=== PATIENT | male | born 2000 | race African-American/Black ===

== ENCOUNTER 2021-06-26 13:36 | Emergency (ER) | payer OTHER ==
[~2021-06-26] VITALS: Ht 180 cm; Wt 100.0 kg
[2021-06-26] MEDS ORDERED: LIDOCAINE 2% VISCOUS 15 ML UDC PO ONE (14:15)
[2021-06-26] MEDS ORDERED: ANTACID SUSP 30 ML UDC (MYLANTA) PO ONE (14:15)
[2021-06-26] MEDS ORDERED: diphenhydrAMINE 25 MG TAB (BENADRYL) PO ONE (14:15)
[2021-06-26] MEDS ORDERED: FAMOTIDINE 20 MG (PEPCID) TABLET PO ONE (14:15)
[2021-06-26] MEDS ORDERED: EPIN0.3P3 IJ (14:20)
--- NOTE | 2021-06-26 14:20 | ED General ---
General Chief Complaint: Allergic Reaction Stated Complaint: ALLERGIC REACTION Nursing Triage Note: pt to rm [address] by cr co ems with cc of having an allergic rxn after apparently eating fish when he thought he was eating chicken. pt used epi pen about 1315. sat of 99% at triage on room air with mild mid chest discomfort. Source of Information: Patient Exam Limitations: No Limitations History of Present Illness Date Seen by Provider: June 26, 2021 Time Seen by Provider: 14:17 Initial Comments To ER by EMS with reports of allergic reaction. He has been working and went to a [employer] [place] to get lunch and thought he was getting chicken but it must of been fish. He has a known allergy to fish and keeps an EpiPen with him. Shortly after ingesting this he noticed some itching in his mouth and throat tightness in his lower chest and then some swelling in his throat. He gave himself the EpiPen prior to calling EMS. He feels a little better now though he has some persistent epigastric tightness. No cough no wheezing no abdominal cramping or diarrhea no hives no itching of the skin. He does have rhinorrhea but he attributes that to seasonal allergies as this was present even before ingestion of the fish. Timing/Duration: 1-2 Days Severity: Moderate Associated Systoms: Denies Symptoms Allergies and Home Medications Allergies Coded Allergies: fish derived (Verified Allergy, Unknown, 06/26/21) Patient Home Medication List Home Medication List Reviewed: Yes Epinephrine (Epipen 2-Marcos) 0.3 Mg/0.3 Ml Auto.injct, 0.3 MG IJ PRN PRN for anaphylaxis Prescribed by: JING JOSHUA on 06/26/21 1420 Review of Systems Review of Systems Constitutional: see HPI EENTM: see HPI Respiratory: no symptoms reported Cardiovascular: no symptoms reported Genitourinary: no symptoms reported Musculoskeletal: no symptoms reported Skin: no symptoms reported Psychiatric/Neurological: No Symptoms Reported Hematologic/Lymphatic: No Symptoms Reported Immunological/Allergic: no symptoms reported Past Tyjeuml-Ddrepz-Eiffnn Hx Patient Social History Tobacco Use?: No Substance use?: No Alcohol Use?: Yes Alcohol type: Hard Liquor Immunizations Up To Date Third COVID19 Vaccination Date: 01/2021 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 oz. kg; 30.00 BMI Method: General Appearance: No Apparent Distress, WD/WN Eyes: Bilateral Eye Normal Inspection, Bilateral Eye PERRL HEENT: PERRL/EOMI, TMs Normal, Other (Mild rhinorrhea no oropharyngeal swelling no wheezing no stridor) Neck: Full Range of Motion, Normal Inspection Respiratory: No Accessory Muscle Use, No Respiratory Distress Cardiovascular: Regular Rate, Rhythm, Normal Peripheral Pulses Gastrointestinal: Normal Bowel Sounds, Non Tender, Soft Extremity: Normal Capillary Refill, Normal Inspection Neurologic/Psychiatric: Alert, Oriented x3 Skin: Normal Color, Warm/Dry Progress/Results/Core Measures Suspected Sepsis SIRS Temperature: Pulse: 67 Respiratory Rate: Blood Pressure 140 /79 Mean: 99 Results/Orders My Orders Orders - JING JOSHUA APRN Diphenhydramine Tablet (Benadryl Tablet) (06/26/21 14:15) Famotidine Tablet (Pepcid Tablet) (06/26/21 14:15) Antacid Suspension (Mylanta Suspension (06/26/21 14:15) Lidocaine 2% Viscous 15 Ml (Xylocaine Vi (06/26/21 14:15) Medications Given in ED Current Medications Medications Dose Ordered Sig/Ana Route Start Time Stop Time Status Last Admin Dose Admin Al Hydrox/Mg Hydrox/Simethicone 30 ml ONCE ONCE PO 06/26/21 14:15 06/26/21 14:17 DC 06/26/21 14:20 30 ML Diphenhydramine HCl 25 mg ONCE ONCE PO 06/26/21 14:15 06/26/21 14:17 DC 06/26/21 14:20 25 MG Famotidine 20 mg ONCE ONCE PO 06/26/21 14:15 06/26/21 14:17 DC 06/26/21 14:21 20 MG Lidocaine HCl 15 ml ONCE ONCE PO 06/26/21 14:15 06/26/21 14:17 DC 06/26/21 14:20 15 ML Vital Signs/I&O 06/26/21 06/26/21 13:40 13:49 Temp 36.6 Pulse 67 B/P (MAP) 140/79 (99) Pulse Ox 99 O2 Delivery Room Air Room Air Capillary Refill : Less Than 3 Seconds Blood Pressure Mean: 99 Departure Communication (Admissions) 1512-feeling much better after GI cocktail and Benadryl. No symptoms at all currently. We will discharged home. Discussed with him the need to use some Claritin or Zyrtec at home or Benadryl. I did send him in a new EpiPen prescription. Impression Primary Impression: Allergic reaction Disposition: HOME, SELF-CARE Condition: Stable Departure-Patient Inst. Decision time for Depature: 14:19 Patient Instructions: Food Allergy Add. Discharge Instructions: 1. Return to ER for any concerns. Follow-up with your doctor next week. All discharge instructions reviewed with patient and/or family. Voiced understanding. Scripts Epinephrine (Epipen 2-Marcos) 0.3 Mg/0.3 Ml Auto.injct 0.3 MG IJ PRN PRN for anaphylaxis, #1 EA Prov: JING JOSHUA APRN 06/26/21 JING JOSHUA APRN June 26, 2021 14:20
[2021-06-26 15:16] VITALS: BP 125/68
== END 2021-06-26 15:16 | disposition home or self-care (01) ==
LOC: ER 13:37
DX: T78.1XXA Other adverse food reactions, not elsewhere classified, initial encounter (principal); Z91.013 Allergy to seafood
CPT/HCPCS: 99285